=== PATIENT | female | born 1985 | race Caucasian/White ===

== ENCOUNTER 2022-05-01 15:44 | Emergency (ER) | payer BC, SELFPAY ==
[2022-05-01 15:54] VITALS: BP 111/95; PULSE 93; RESP 18; TEMP 37.1; O2SAT 100
[2022-05-01 16:05] VITALS: BP 111/95; PULSE 93; RESP 18; TEMP 37.1; O2SAT 100
--- NOTE | 2022-05-01 16:46 | ED.GENADULT ---
HPI - General Adult General Chief complaint: Unspecified Stated complaint: Facial Swelling Source: patient Mode of arrival: ambulatory Limitations: no limitations History of Present Illness HPI narrative: Patient presents for evaluation of right-sided maxillary facial swelling. Symptom onset this morning. She states she has had recurrent symptoms in the past with sinusitis. She denies any current drainage from her nose. She denies any fevers, chills, sore throat, respiratory symptoms, otalgia. In the past she has responded well to oral antibiotics. She smokes just under a pack per day. Denies any dental pain. No additional complaints or concerns Related Data Allergies Allergy/AdvReac Type Severity Reaction Status Date / Time No Known Allergies Allergy Verified 05/01/22 16:04 Review of Systems Review of Systems: CONSTITUTIONAL: Denies fever, chills, or sweats. EYES: Denies visual changes, redness, or discharge. ENT: Reports right sided maxillary facial swelling and pain. Denies rhinorrhea, congestion, sore throat, or otalgia. CARDIOVASCULAR: Denies chest pain, palpitations, or edema. RESPIRATORY: Denies cough or dyspnea. GASTROINTESTINAL: Denies abdominal pain, nausea, vomiting, or diarrhea. GENITOURINARY: Denies dysuria or hematuria. SKIN: Denies rash or itching. MUSCULOSKELETAL: Denies back pain, joint pain, or myalgia. NEUROLOGIC: Denies headache, numbness, dizziness, or weakness. PSYCHIATRIC: Denies anxiety or depression. [facility] Past Medical History Medical History Recurrent sinusitis Surgical History Surgical History No pertinent past surgical history Family History Family History Mother Family history non-contributory Social History Social History Smoking packs per day: 0.75 Smoking cigarettes per day: 15.0 Smoking status: Current every day smoker Substance use: never Gender identity (if verbalized by the patient): Female Sexual Orientation (if Verbalized by the Patient): Straight or Heterosexual Spiritual care concerns: No Exam Narrative: GENERAL: Well-appearing, well-nourished, and in no acute distress. HEAD: Normocephalic, atraumatic. EYES: PERRLA and EOMI. ENT: Nares clear, no rhinorrhea or epistaxis. Right maxillary facial swelling and tenderness. Mucous membranes moist. Oropharynx without tonsillar hypertrophy exudate or other lesions. I do not appreciate any dental abscess. Bilateral TMs pearly hernandez nonbulging NECK: Supple. No adenopathy or masses. No carotid bruits or JVD CHEST: Clear to auscultation. No respiratory distress. No wheezes rales or rhonchi HEART: Regular rate and rhythm. No murmur heard. Normal peripheral pulses. ABDOMEN: Soft, nontender, nondistended, normal active bowel sounds. EXTREMITIES: Normal range of motion. No edema. SKIN: Warm, dry, no rash. NEURO: No focal deficits. Alert and oriented x3. PSYCH: Normal mood and affect. Course Course Emergency Course: This is a 36-year-old female who presented for evaluation of right maxillary facial pain and swelling. She has recurrent sinusitis. I do not appreciate a dental abscess. Given recurrence of symptoms with favorable response to oral abx in past, will tx with augmentin. Follow-up outpatient for further evaluation and treatment and return for worsening symptoms. Patient in agreement with plan of care. Level of Care: Express Care Visit Vital Signs Vital signs: Vital Signs Temperature 37.1 C 05/01/22 15:54 Pulse Rate 93 05/01/22 15:54 Respiratory Rate 18 05/01/22 15:54 Blood Pressure 111/95 H 05/01/22 15:54 Pulse Oximetry 100 05/01/22 15:54 Oxygen Delivery Room Air 05/01/22 15:54 Temperature 37.1 C 05/01/22 16:05 Pulse Rate 93
== END 2022-05-01 16:37 | disposition home or self-care (01) ==
PROVIDERS: Emergency Provider Nurse Practitioner
DX: J01.91 Acute recurrent sinusitis, unspecified (principal); F17.210 Nicotine dependence, cigarettes, uncomplicated
CPT/HCPCS: 99213; G0463